=== PATIENT | male | born 1980 | race Caucasian/White ===

== ENCOUNTER 2017-08-24 14:02 | Emergency (ER) | payer MEDICARE ==
[~2017-08-24] VITALS: Ht 165.1 cm; Wt 82.0 kg
[2017-08-24] MEDS ORDERED: LORazepam 2 MG/ML, 1ML ONE (14:10)
[2017-08-24] MEDS ORDERED: SODIUM CHLORIDE 0.9% 1,000ML IVBOLUS ONE (14:30)
[2017-08-24] MEDS ORDERED: PLEASE ENTER HEIGHT AND WEIGHT MC SCH (14:30)
[2017-08-24] MEDS ORDERED: PLEASE ENTER ALLERGIES MC SCH ×2 (14:30)
[2017-08-24] MEDS ORDERED: LORazepam 2 MG/ML, 1ML IVPush ONE (14:30)
[2017-08-24 14:31] LABS: HEMATOCRIT 44.9 % (39.2-51.8); HEMOGLOBIN 15.5 g/dL (13.7-18.0); WHITE BLOOD COUNT 6.3 x10^3/uL (3.4-10)
[2017-08-24 14:42] LABS: BLOOD UREA NITROGEN 11 mg/dL (7-18)
[2017-08-24 14:49] LABS: ASPARTATE AMINO TRANSFERASE 26 U/L (15-37)
[2017-08-24 14:52] LABS: IS PT STATUS REG ER OR PRE ER? YES
[2017-08-24 15:28] VITALS: BP 156/99
[2017-08-24 15:35] LABS: DAU SCREEN DISCLAIMER
== END 2017-08-24 17:13 | disposition home or self-care (01) ==
LOC: ED 17:00
DX: G40.309 Generalized idiopathic epilepsy and epileptic syndromes, not intractable, without status epilepticus (principal); I10 Essential (primary) hypertension
CPT/HCPCS: 36415; 71010; 80053; 80175; 80307; 84484; 85025; 93005; 96361; 96374; 99285; J2060; J7030; G0479